=== PATIENT | female | born 1965 | race Hispanic/Latino ===

== ENCOUNTER → 2022-02-18 | Outpatient (CLI) | payer BC ==
[~2022-02-18] MED LIST: CRESTOR10 MG PO; MULTI-VITAMIN1 EACH PO; OMEGA 3 1,0001 EACH PO; ZESTRIL10 MG PO
== END | disposition home or self-care (01) ==
LOC: RAD 11:50 → EDSTATUS 03-08 09:00
PROVIDERS: ATTEND Internal Medicine Gastroenterology
DX: Z12.11 Encounter for screening for malignant neoplasm of colon (principal); Z53.9 Procedure and treatment not carried out, unspecified reason
CPT/HCPCS: 93005

== ENCOUNTER → 2022-03-29 | Day surgery (SDC) | payer BC ==
[~2022-03-29] MED LIST changes: +PROPOFOL IV EMULSION 10 MG/ML 20 ML VIAL ONE
[2022-03-29 11:05] VITALS: BP 119/75
== END | disposition home or self-care (01) ==
LOC: OR 07:42
PROVIDERS: ATTEND Internal Medicine Gastroenterology
DX: Z12.11 Encounter for screening for malignant neoplasm of colon (principal); K57.90 Diverticulosis of intestine, part unspecified, without perforation or abscess without bleeding; K64.8 Other hemorrhoids; K21.9 Gastro-esophageal reflux disease without esophagitis; I10 Essential (primary) hypertension; E78.5 Hyperlipidemia, unspecified; R12 Heartburn; K57.30 Diverticulosis of large intestine without perforation or abscess without bleeding
CPT/HCPCS: 45378; J2704